=== PATIENT | male | born 1985 ===

== ENCOUNTER 2018-01-27 10:53 | Outpatient (CLI) | payer OTHER ==
[~2018-01-27] VITALS: Ht 182.9 cm; Wt 78.9 kg
[2018-01-27] MEDS ORDERED: CEFUROXIME500 MG PO (12:35)
[2018-01-27] MEDS ORDERED: FLONASE16 GM NASAL (12:35)
[2018-01-27] MEDS ORDERED: ZYRTEC10 MG PO (12:35)
== END 2018-01-27 11:15 | disposition home or self-care (01) ==
LOC: OFIC 805 10:53
DX: J31.0 Chronic rhinitis (principal); J01.40 Acute pansinusitis, unspecified; J34.3 Hypertrophy of nasal turbinates; H69.83 Other specified disorders of Eustachian tube, bilateral